=== PATIENT | female | born 1960 | race African-American/Black ===

== ENCOUNTER 2019-04-04 15:55 | Emergency (ER) | payer MEDICARE ==
[~2019-04-04] VITALS: Ht 167.6 cm; Wt 66.0 kg
[2019-04-04] MEDS ORDERED: IBUPROFEN 800MG TABLET PO ONE (17:45)
[2019-04-04] MEDS ORDERED: ACETAMINOPHEN 500MG TABLET PO ONE (17:45)
[2019-04-04] MEDS ORDERED: ACETAMINOPHEN WITH CODEINE 300/30MG TABLET PO ONE (19:45)
[2019-04-04 21:52] VITALS: BP 124/74
== END 2019-04-04 21:53 | disposition home or self-care (01) ==
LOC: ER 15:55
DX: M79.662 Pain in left lower leg (principal); M79.661 Pain in right lower leg; I10 Essential (primary) hypertension; E78.00 Pure hypercholesterolemia, unspecified; Z98.890 Other specified postprocedural states
CPT/HCPCS: 93970; 99284

== ENCOUNTER 2019-12-29 12:26 | Inpatient (IN) | payer MEDICARE ==
[~2019-12-29] VITALS: Ht 162.6 cm; Wt 58.5 kg
[2019-12-29] MEDS ORDERED: SODIUM CHLORIDE 0.9% 1000ML BAG (SEPSIS BOLUS) IV ONE (13:00)
[2019-12-29] MEDS ORDERED: MORPHINE SULFATE 2 MG/ML CPJ (NOT FOR IM USE) IV ONE (13:15)
[2019-12-29 13:20] LABS: BASOPHILS % 0.5 % (0.0-2.0); EOSINOPHILS % 0.3 % (0.0-5.0); HEMATOCRIT. 48.9 % (36.0-48.0); HEMOGLOBIN. 16.1 g/dL (12.0-16.0); LYMPHOCYTES % 7.3 % (20.0-50.0); MEAN CORPUSCULAR HEMOGLOBIN 30.6 pg (28.0-32.0); MEAN CORPUSCULAR VOLUME 93.1 fL (81.0-99.0); MEAN PLATELET VOLUME 7.7 fl (7.4-10.4); MONOCYTES % 5.3 % (2.0-8.0); NEUTROPHILS % 86.6 % (40.0-76.0); PLATELET 279 x1000/uL (130-400); RED BLOOD CELL COUNT 5.25 mill/uL (4.2-5.4); RED CELL DISTRIBUTION WIDTH 14.8 % (11.6-14.6)
[2019-12-29 13:26] LABS: CHLORIDE 110 mEq/L (98-107)
[2019-12-29 14:54] LABS: PARTIAL THROMBOPLASTIN TIME 22.9 sec (23.4-31.0); PROTHROMBIN TIME 10.4 sec (9.6-11.0)
[2019-12-29] MEDS ORDERED: LEVOFLOXACIN 750MG PREMIX 150 ML IV ONE (15:30)
[2019-12-29] MEDS ORDERED: METRONIDAZOLE 500 MG PREMIX 100 ML IV ONE (15:30)
[2019-12-29 15:38] LABS: CLARITY URINE CLEAR (CLEAR); COLOR URINE DARK YELLOW (YELLOW); KETONES URINE TRACE (NEGATIVE); LEUKOCYTE ESTERASE URINE 2+ (NEGATIVE); NITRITE URINE POSITIVE (NEGATIVE); OCCULT BLOOD URINE NEGATIVE (NEGATIVE); PROTEIN URINE 1+ (NEGATIVE)
[2019-12-29 17:28] VITALS: BP 119/64
[2019-12-29 18:00] VITALS: BP 134/77
[2019-12-29] MEDS ORDERED: ACETAMINOPHEN 650MG SUPP PR PRN (18:15)
[2019-12-29] MEDS ORDERED: IPRATROPIUM/ALBUTEROL 0.5-3(2.5)MG/3ML NEB NEB PRN (18:15)
[2019-12-29] MEDS ORDERED: GUAIFENESIN 200MG/10ML SUGAR FREE UDC PO PRN (18:15)
[2019-12-29] MEDS ORDERED: LORAZEPAM 0.5MG TABLET PO PRN (18:15)
[2019-12-29] MEDS ORDERED: ONDANSETRON HCL 4MG/2ML INJ IV PRN (18:15)
[2019-12-29] MEDS ORDERED: CLONIDINE 0.1MG TABLET PO PRN (18:15)
[2019-12-29] MEDS ORDERED: NA PHOS,M-B/NA PHOS,DI-BA ENEMA 118ML PR PRN (18:15)
[2019-12-29] MEDS ORDERED: DIPHENHYDRAMINE 50MG/ML VIAL IV PRN (18:15)
[2019-12-29] MEDS ORDERED: DOCUSATE SODIUM 100MG CAPSULE PO PRN (18:15)
[2019-12-29] MEDS ORDERED: MAGNESIUM/ALUMINUM HYDROXIDE/SIMETHICONE 30ML UDC PO PRN (18:15)
[2019-12-29] MEDS ORDERED: BISACODYL 10MG SUPP PR NR (18:22)
[2019-12-29] MEDS ORDERED: NA PHOS,M-B/NA PHOS,DI-BA ENEMA 118ML PR NR (18:35)
[2019-12-29] MEDS: DEXT 5%/0.45% NACL 1000ML 1,000 ML IV SCH (18:40)
[2019-12-29] MEDS: ENOXAPARIN 40MG/0.4ML SYR SUBCUT SCH (18:54)
[2019-12-29 20:00] VITALS: BP 130/74
[2019-12-29] MEDS: METRONIDAZOLE 500 MG PREMIX 100 ML IV SCH (21:26)
[2019-12-29] MEDS: HYDROCODONE/ACETAMINOPHEN 5/325MG TABLET PO PRN (21:45)
[2019-12-29 22:00] VITALS: BP 157/82
[2019-12-30] VITALS (24 sets, daily range): BP systolic 128–163; BP diastolic 71–121
[2019-12-30] MEDS: HYDROCODONE/ACETAMINOPHEN 5/325MG TABLET PO PRN (02:30)
[2019-12-30] MEDS: DEXT 5%/0.45% NACL 1000ML 1,000 ML IV SCH ×2 (05:10→14:30)
[2019-12-30] MEDS: METRONIDAZOLE 500 MG PREMIX 100 ML IV SCH (05:20)
[2019-12-30 07:22] LABS: CHLORIDE 108 mEq/L (98-107)
[2019-12-30 07:25] LABS: BASOPHILS % 0.1 % (0.0-2.0); HEMATOCRIT. 42.4 % (36.0-48.0); HEMOGLOBIN. 14.1 g/dL (12.0-16.0); LYMPHOCYTES % 7.1 % (20.0-50.0); MEAN CORPUSCULAR HEMOGLOBIN 30.6 pg (28.0-32.0); MEAN CORPUSCULAR VOLUME 91.9 fL (81.0-99.0); MONOCYTES % 6.7 % (2.0-8.0); NEUTROPHILS % 86.1 % (40.0-76.0); PLATELET 211 x1000/uL (130-400); RED BLOOD CELL COUNT 4.61 mill/uL (4.2-5.4); RED CELL DISTRIBUTION WIDTH 14.3 % (11.6-14.6)
[2019-12-30 08:01] LABS: HDL CHOLESTEROL 41 mg/dL (40-59); LDL CHOLESTEROL 33 mg/dL (5-100)
[2019-12-30 08:03] LABS: T4 FREE 1.08 ng/dL (0.76-1.46)
[2019-12-30] MEDS ORDERED: FAMOTIDINE 20MG/2ML VIAL IV SCH (09:00)
[2019-12-30] MEDS: MORPHINE SULFATE 2 MG/ML CPJ (NOT FOR IM USE) IV PRN ×2 (11:08→15:49)
[2019-12-30] MEDS ORDERED: SODIUM CHLORIDE 0.9% 500 ML IV ONE ×2 (11:15→12:30)
[2019-12-30] MEDS ORDERED: POTASSIUM CHLORIDE INJ 40 MEQ in DEXT 5% WATER 250 ML IV NR (12:00)
[2019-12-30] MEDS ORDERED: HYDRALAZINE 20MG/ML VIAL IV PRN (13:45)
[2019-12-30 14:07] LABS: BG BASE EXCESS -2.4 mmol/L (-2.0-2.0); BG CARBOXYHEMOGLOBIN 0.7 % (0.5-1.5); BG DEOXYHEMOGLOBIN 6.2 % (0.0-5.0); BG METHEMOGLOBIN 0.3 % (0.0-1.5); BG OXYGEN SATURATION 93.7 % (92.0-98.5); BG OXYHEMOGLOBIN 92.8 % (94.0-97.0); BG PCO2 32.5 mmHg (35.0-45.0); BG PH 7.428 (7.350-7.450); BG PO2 64.4 mmHg (75.0-100.0); BG SAMPLE SITE LEFT RADIAL; BG TOTAL HEMOGLOBIN 14.5 g/dL (12.0-18.0); BG VENT MODE ROOM AIR
[2019-12-30 14:33] LABS: HEPATITIS B SURFACE ANTIGEN NEGATIVE
[2019-12-30 15:03] LABS: HEPATITIS A AB IGM NEGATIVE (NEGATIVE)
[2019-12-30] MEDS: POLYETHYLENE GLYCOL 3350 (17GM) 1 DOSE PACK PO SCH (15:43)
[2019-12-30] MEDS: PIPERACILLIN/TAZOBACTAM 3.375 G in DEXT 5% WATER 100 ML IV SCH (15:43)
[2019-12-30] MEDS ORDERED: LEVOFLOXACIN 500MG PREMIX 100 ML IV SCH (16:00)
[2019-12-30] MEDS ORDERED: SORBITOL 70% SOLN 30ML PO NR ×2 (16:00→21:00)
[2019-12-30] MEDS ORDERED: ACETAMINOPHEN 325MG TABLET PO PRN (16:45)
[2019-12-30] MEDS ORDERED: DOCUSATE SODIUM 100MG CAPSULE PO SCH (17:00)
[2019-12-30] MEDS: ENOXAPARIN 40MG/0.4ML SYR SUBCUT SCH (18:10)
[2019-12-30] MEDS: SENNOSIDES/DOCUSATE SOD 8.6/50MG TABLET PO SCH (20:23)
[2019-12-30] MEDS: METOCLOPRAMIDE HCL 10MG TABLET PO SCH (20:24)
[2019-12-30] MEDS: AMITRIPTYLINE 10MG TABLET PO SCH (20:24)
[2019-12-31] VITALS (12 sets, daily range): BP systolic 113–149; BP diastolic 72–96
[2019-12-31] MEDS: PIPERACILLIN/TAZOBACTAM 3.375 G in DEXT 5% WATER 100 ML IV SCH ×3 (00:26→11:33)
[2019-12-31] MEDS: DEXT 5%/0.45% NACL 1000ML 1,000 ML IV SCH ×3 (01:48→18:54)
[2019-12-31] MEDS ORDERED: METOPROLOL TARTRATE 25MG TABLET PO NR ×2 (03:15→12:45)
[2019-12-31 05:32] LABS: HEMATOCRIT. 40.9 % (36.0-48.0); HEMOGLOBIN. 13.7 g/dL (12.0-16.0); MEAN CORPUSCULAR HEMOGLOBIN 30.5 pg (28.0-32.0); MEAN CORPUSCULAR VOLUME 91.1 fL (81.0-99.0); PLATELET 192 x1000/uL (130-400); RED BLOOD CELL COUNT 4.48 mill/uL (4.2-5.4); RED CELL DISTRIBUTION WIDTH 14.4 % (11.6-14.6)
[2019-12-31 05:42] LABS: CHLORIDE 111 mEq/L (98-107)
[2019-12-31 05:52] LABS: CREATINE KINASE 62 IU/L (26-192)
[2019-12-31] MEDS: OMEPRAZOLE 20MG CAPSULE EXTENDED RELEASE PO SCH (06:35)
[2019-12-31] MEDS: METOCLOPRAMIDE HCL 10MG TABLET PO SCH ×4 (06:35→20:24)
[2019-12-31] MEDS: MORPHINE SULFATE 2 MG/ML CPJ (NOT FOR IM USE) IV PRN ×4 (06:49→20:45)
[2019-12-31] MEDS: DOCUSATE SODIUM 100MG CAPSULE PO SCH ×2 (08:20→16:21)
[2019-12-31] MEDS: POLYETHYLENE GLYCOL 3350 (17GM) 1 DOSE PACK PO SCH (08:21)
[2019-12-31] MEDS: BISACODYL 10MG SUPP PR SCH ×2 (08:21→08:43)
[2019-12-31] MEDS ORDERED: AMLODIPINE 2.5MG TABLET PO NR (12:15)
[2019-12-31] MEDS ORDERED: SODIUM CHLORIDE 0.9% 500 ML IV ONE (12:15)
[2019-12-31] MEDS ORDERED: POTASSIUM CHLORIDE 20MEQ TABLET SR PO NR (12:15)
[2019-12-31 12:16] LABS: PLATELET ESTIMATE NORMAL
[2019-12-31] MEDS ORDERED: SIMETHICONE 80MG TABLET CHEW PO SCH (12:45)
[2019-12-31] MEDS: ACETAMINOPHEN 325MG TABLET PO PRN (12:55)
[2019-12-31] MEDS: ENOXAPARIN 40MG/0.4ML SYR SUBCUT SCH (18:53)
[2019-12-31] MEDS: SENNOSIDES/DOCUSATE SOD 8.6/50MG TABLET PO SCH (20:24)
[2019-12-31] MEDS: AMITRIPTYLINE 10MG TABLET PO SCH (20:24)
[2019-12-31] MEDS: METOPROLOL TARTRATE 50MG TABLET PO SCH (20:26)
[2019-12-31] MEDS: MEROPENEM 1,000 MG in SODIUM CHLORIDE 0.9% 100 ML IV SCH (20:27)
[2019-12-31] MEDS ORDERED: AMLODIPINE 2.5MG TABLET PO SCH (21:00)
[2019-12-31] MEDS ORDERED: METOPROLOL TARTRATE 25MG TABLET PO SCH (21:00)
[2020-01-01] VITALS (12 sets, daily range): BP systolic 116–149; BP diastolic 37–78
[2020-01-01] MEDS: DEXT 5%/0.45% NACL 1000ML 1,000 ML IV SCH ×2 (03:20→10:06)
[2020-01-01] MEDS: MEROPENEM 1,000 MG in SODIUM CHLORIDE 0.9% 100 ML IV SCH ×3 (04:10→20:44)
[2020-01-01] MEDS: MORPHINE SULFATE 2 MG/ML CPJ (NOT FOR IM USE) IV PRN ×4 (04:40→20:38)
[2020-01-01] MEDS: METOCLOPRAMIDE HCL 10MG TABLET PO SCH ×4 (06:00→20:36)
[2020-01-01] MEDS: OMEPRAZOLE 20MG CAPSULE EXTENDED RELEASE PO SCH (06:00)
[2020-01-01 07:14] LABS: CHLORIDE 111 mEq/L (98-107)
[2020-01-01 07:15] LABS: BASOPHILS % 0.4 % (0.0-2.0); EOSINOPHILS % 1.2 % (0.0-5.0); HEMATOCRIT. 36.9 % (36.0-48.0); HEMOGLOBIN. 12.5 g/dL (12.0-16.0); LYMPHOCYTES % 13.8 % (20.0-50.0); MEAN CORPUSCULAR HEMOGLOBIN 30.8 pg (28.0-32.0); MEAN CORPUSCULAR VOLUME 91.3 fL (81.0-99.0); MEAN PLATELET VOLUME 8.5 fl (7.4-10.4); MONOCYTES % 7.8 % (2.0-8.0); NEUTROPHILS % 76.8 % (40.0-76.0); PLATELET 176 x1000/uL (130-400); RED BLOOD CELL COUNT 4.05 mill/uL (4.2-5.4); RED CELL DISTRIBUTION WIDTH 14.2 % (11.6-14.6)
[2020-01-01] MEDS: BISACODYL 10MG SUPP PR SCH ×2 (09:00→10:00)
[2020-01-01] MEDS: DOCUSATE SODIUM 100MG CAPSULE PO SCH (09:00)
[2020-01-01] MEDS: POLYETHYLENE GLYCOL 3350 (17GM) 1 DOSE PACK PO SCH (10:00)
[2020-01-01] MEDS: DOCUSATE SODIUM 250MG CAPSULE PO SCH ×2 (10:04→16:04)
[2020-01-01] MEDS: METOPROLOL TARTRATE 50MG TABLET PO SCH (10:04)
[2020-01-01] MEDS ORDERED: DILTIAZEM HCL 30MG TABLET PO SCH (10:15)
[2020-01-01] MEDS ORDERED: POTASSIUM CHLORIDE INJ 40 MEQ in DEXT 5% WATER 250 ML IV SCH (11:00)
[2020-01-01 11:23] LABS: BG BASE EXCESS -0.4 mmol/L (-2.0-2.0); BG CARBOXYHEMOGLOBIN 0.8 % (0.5-1.5); BG HCO3 ACT 24.3 mmol/L (22.0-26.0); BG METHEMOGLOBIN 0.1 % (0.0-1.5); BG OXYHEMOGLOBIN 94.1 % (94.0-97.0); BG PCO2 39.9 mmHg (35.0-45.0); BG PH 7.402 (7.350-7.450); BG PO2 69.9 mmHg (75.0-100.0); BG SAMPLE SITE RIGHT RADIAL; BG TOTAL HEMOGLOBIN 13.3 g/dL (12.0-18.0); BG VENT MODE ROOM AIR
[2020-01-01] MEDS: ACETAMINOPHEN 325MG TABLET PO PRN (13:19)
[2020-01-01] MEDS: DILTIAZEM HCL 30MG TABLET PO SCH ×2 (16:03→22:31)
[2020-01-01] MEDS: ENOXAPARIN 40MG/0.4ML SYR SUBCUT SCH (16:04)
[2020-01-01] MEDS: BUDESONIDE 0.5MG/2ML NEB HHN SCH ×2 (16:15→20:16)
[2020-01-01] MEDS: IPRATROPIUM/ALBUTEROL 0.5-3(2.5)MG/3ML NEB HHN SCH ×2 (16:15→20:15)
[2020-01-01] MEDS: SENNOSIDES/DOCUSATE SOD 8.6/50MG TABLET PO SCH (20:36)
[2020-01-01] MEDS: AMITRIPTYLINE 10MG TABLET PO SCH (20:36)
[2020-01-02] VITALS (12 sets, daily range): BP systolic 117–150; BP diastolic 54–86
[2020-01-02] MEDS: IPRATROPIUM/ALBUTEROL 0.5-3(2.5)MG/3ML NEB HHN SCH ×4 (01:36→20:26)
[2020-01-02] MEDS: MEROPENEM 1,000 MG in SODIUM CHLORIDE 0.9% 100 ML IV SCH ×2 (04:41→11:49)
[2020-01-02] MEDS: DEXT 5%/0.45% NACL 1000ML 1,000 ML IV SCH ×2 (06:16→14:37)
[2020-01-02] MEDS: METOCLOPRAMIDE HCL 10MG TABLET PO SCH ×4 (06:17→20:31)
[2020-01-02] MEDS: OMEPRAZOLE 20MG CAPSULE EXTENDED RELEASE PO SCH (06:17)
[2020-01-02] MEDS: MORPHINE SULFATE 2 MG/ML CPJ (NOT FOR IM USE) IV PRN ×3 (06:49→20:33)
[2020-01-02] MEDS: DILTIAZEM HCL 30MG TABLET PO SCH ×3 (06:50→22:33)
[2020-01-02 06:58] LABS: BASOPHILS % 0.5 % (0.0-2.0); EOSINOPHILS % 2.3 % (0.0-5.0); HEMATOCRIT. 37.2 % (36.0-48.0); HEMOGLOBIN. 12.5 g/dL (12.0-16.0); LYMPHOCYTES % 19.2 % (20.0-50.0); MEAN CORPUSCULAR VOLUME 92.2 fL (81.0-99.0); MEAN PLATELET VOLUME 8.4 fl (7.4-10.4); MONOCYTES % 7.9 % (2.0-8.0); NEUTROPHILS % 70.1 % (40.0-76.0); PLATELET 176 x1000/uL (130-400); RED BLOOD CELL COUNT 4.04 mill/uL (4.2-5.4); RED CELL DISTRIBUTION WIDTH 14.5 % (11.6-14.6)
[2020-01-02 07:05] LABS: CHLORIDE 110 mEq/L (98-107)
[2020-01-02] MEDS: BUDESONIDE 0.5MG/2ML NEB HHN SCH ×2 (07:31→20:27)
[2020-01-02] MEDS: BISACODYL 10MG SUPP PR SCH (09:00)
[2020-01-02] MEDS: DOCUSATE SODIUM 250MG CAPSULE PO SCH ×2 (10:00→18:42)
[2020-01-02] MEDS: POLYETHYLENE GLYCOL 3350 (17GM) 1 DOSE PACK PO SCH (10:00)
[2020-01-02] MEDS: ENOXAPARIN 40MG/0.4ML SYR SUBCUT SCH (18:42)
[2020-01-02] MEDS: SENNOSIDES/DOCUSATE SOD 8.6/50MG TABLET PO SCH (20:31)
[2020-01-02] MEDS ORDERED: AMITRIPTYLINE 25MG TABLET PO SCH (21:00)
[2020-01-03] VITALS (10 sets, daily range): BP systolic 116–148; BP diastolic 56–84
[2020-01-03] MEDS: IPRATROPIUM/ALBUTEROL 0.5-3(2.5)MG/3ML NEB HHN SCH ×3 (01:11→10:57)
[2020-01-03] MEDS: DEXT 5%/0.45% NACL 1000ML 1,000 ML IV SCH ×2 (06:14→16:09)
[2020-01-03] MEDS: OMEPRAZOLE 20MG CAPSULE EXTENDED RELEASE PO SCH (06:16)
[2020-01-03] MEDS: METOCLOPRAMIDE HCL 10MG TABLET PO SCH ×3 (06:16→17:00)
[2020-01-03] MEDS: DILTIAZEM HCL 30MG TABLET PO SCH ×2 (06:17→15:27)
[2020-01-03] MEDS: MORPHINE SULFATE 2 MG/ML CPJ (NOT FOR IM USE) IV PRN ×2 (06:22→11:20)
[2020-01-03 06:55] LABS: BASOPHILS % 0.7 % (0.0-2.0); EOSINOPHILS % 5.7 % (0.0-5.0); HEMATOCRIT. 36.2 % (36.0-48.0); HEMOGLOBIN. 12.1 g/dL (12.0-16.0); LYMPHOCYTES % 28.1 % (20.0-50.0); MEAN CORPUSCULAR HEMOGLOBIN 30.8 pg (28.0-32.0); MEAN CORPUSCULAR VOLUME 92.3 fL (81.0-99.0); MONOCYTES % 13.9 % (2.0-8.0); NEUTROPHILS % 51.6 % (40.0-76.0); PLATELET 213 x1000/uL (130-400); RED BLOOD CELL COUNT 3.92 mill/uL (4.2-5.4); RED CELL DISTRIBUTION WIDTH 14.2 % (11.6-14.6)
[2020-01-03 07:49] LABS: CHLORIDE 108 mEq/L (98-107)
[2020-01-03] MEDS: POLYETHYLENE GLYCOL 3350 (17GM) 1 DOSE PACK PO SCH (08:25)
[2020-01-03] MEDS: DOCUSATE SODIUM 250MG CAPSULE PO SCH ×2 (08:25→17:00)
[2020-01-03] MEDS: BISACODYL 10MG SUPP PR SCH (08:25)
[2020-01-03] MEDS: BUDESONIDE 0.5MG/2ML NEB HHN SCH (08:46)
[2020-01-03] MEDS ORDERED: POTASSIUM CHLORIDE 20MEQ/PACKET PO NR (10:30)
[2020-01-03] MEDS ORDERED: SIMETHICONE 80MG TABLET CHEW PO NR (13:00)
[2020-01-03] MEDS: HYDROCODONE/ACETAMINOPHEN 5/325MG TABLET PO PRN (17:01)
[2020-01-04 09:09] LABS: SACCHAROMYCES CEREVISIAE IGG <20.0 Units (0.0-24.9); SACCHAROMYCES CEREVISIAE IGM <20.0 Units (0.0-24.9)
[2020-01-04 13:07] LABS: ATYPICAL pANCA <1:20 titer (Neg:<1:20)
== END 2020-01-03 18:30 | disposition home or self-care (01) | DRG 872 ==
LOC: ER 12:26 → 3WST 15:25 → SUPCPDRO 15:57 → ENRESERV 16:06
PROVIDERS: ADMIT Internal Medicine; ATTEND Internal Medicine
DX: A41.9 Sepsis, unspecified organism (principal); N39.0 Urinary tract infection, site not specified; E46 Unspecified protein-calorie malnutrition; F31.30 Bipolar disorder, current episode depressed, mild or moderate severity, unspecified; R17 Unspecified jaundice; J98.11 Atelectasis; M48.56XA Collapsed vertebra, not elsewhere classified, lumbar region, initial encounter for fracture; K56.41 Fecal impaction; K52.9 Noninfective gastroenteritis and colitis, unspecified; K44.9 Diaphragmatic hernia without obstruction or gangrene; I25.10 Atherosclerotic heart disease of native coronary artery without angina pectoris; I10 Essential (primary) hypertension; E78.5 Hyperlipidemia, unspecified; E87.6 Hypokalemia; E86.0 Dehydration; J44.9 Chronic obstructive pulmonary disease, unspecified; M47.816 Spondylosis without myelopathy or radiculopathy, lumbar region; E78.00 Pure hypercholesterolemia, unspecified; R73.9 Hyperglycemia, unspecified; F17.210 Nicotine dependence, cigarettes, uncomplicated; R74.0 Nonspecific elevation of levels of transaminase and lactic acid dehydrogenase [LDH]; Z90.49 Acquired absence of other specified parts of digestive tract; Z79.82 Long term (current) use of aspirin; Z90.710 Acquired absence of both cervix and uterus; Z79.899 Other long term (current) drug therapy; Z68.22 Body mass index [BMI] 22.0-22.9, adult
CPT/HCPCS: 36415; 36600; 71045; 72148; 74176; 76700; 80048; 80053; 80061; 80076; 81003; 82270; 82375; 82550; 82553; 82805; 83036; 83605; 84145; 84439; 84443; 84484; 85025; 85651; 86256; 86671; 86705; 86709; 86803; 86850; 86900; 87340; 93005; 93306; 93970; 94640; 97116; 97162; 97530; 99291; J1650; J1956; J2185; J2270; J2543; J3480; J3490; J7030; J7050; J7060; J7626; J8597

== ENCOUNTER 2020-01-18 21:51 | Inpatient (IN) | payer MEDICARE ==
[~2020-01-18] VITALS: Ht 162.6 cm; Wt 53.5 kg
[2020-01-18] MEDS ORDERED: KETOROLAC 30MG/ML VIAL IV STA (22:49)
[2020-01-18] MEDS ORDERED: SODIUM CHLORIDE 0.9% 1,000 ML IV ONE (22:49)
[2020-01-18] MEDS ORDERED: ONDANSETRON HCL 4MG/2ML INJ IV STA (22:49)
[2020-01-18 22:57] LABS: CLARITY URINE CLEAR (CLEAR); COLOR URINE YELLOW (YELLOW); KETONES URINE NEGATIVE (NEGATIVE); LEUKOCYTE ESTERASE URINE NEGATIVE (NEGATIVE); NITRITE URINE NEGATIVE (NEGATIVE); OCCULT BLOOD URINE TRACE (NEGATIVE); PH URINE 6.5 (4.5-8.0); PROTEIN URINE NEGATIVE (NEGATIVE); SPECIFIC GRAVITY URINE 1.007 (1.005-1.030); UROBILINOGEN URINE 0.2 E.U./dL (0.2-1.0)
[2020-01-18 23:09] LABS: BASOPHILS % 1.3 % (0.0-2.0); HEMATOCRIT. 38.9 % (36.0-48.0); HEMOGLOBIN. 13.3 g/dL (12.0-16.0); LYMPHOCYTES % 34.1 % (20.0-50.0); MEAN CORPUSCULAR HEMOGLOBIN 30.4 pg (28.0-32.0); MEAN CORPUSCULAR VOLUME 88.9 fL (81.0-99.0); MEAN PLATELET VOLUME 6.9 fl (7.4-10.4); MONOCYTES % 8.9 % (2.0-8.0); NEUTROPHILS % 54.7 % (40.0-76.0); PLATELET 332 x1000/uL (130-400); RED BLOOD CELL COUNT 4.38 mill/uL (4.2-5.4)
[2020-01-18 23:16] LABS: CHLORIDE 104 mEq/L (98-107)
[2020-01-19] MEDS ORDERED: MORPHINE SULFATE 2 MG/ML CPJ (NOT FOR IM USE) IV ONE (01:45)
[2020-01-19 08:30] VITALS: BP 137/74
[2020-01-19] MEDS ORDERED: LISI40TA4 PO (09:18)
[2020-01-19] MEDS ORDERED: ASPI-1497 PO (09:18)
[2020-01-19] MEDS ORDERED: CARI250T PO (09:18)
[2020-01-19] MEDS ORDERED: PRED2.5T4 PO (09:18)
[2020-01-19] MEDS ORDERED: ATOR20TA65 PO (09:18)
[2020-01-19] MEDS ORDERED: HALO10TA13 PO (09:18)
[2020-01-19] MEDS ORDERED: AMLO10TA80 PO (09:18)
[2020-01-19] MEDS ORDERED: ONDANSETRON HCL 4MG/2ML INJ IV PRN (10:00)
[2020-01-19] MEDS ORDERED: ACETAMINOPHEN 325MG TABLET PO PRN (10:00)
[2020-01-19] MEDS ORDERED: HYDRALAZINE 20MG/ML VIAL IV PRN (10:00)
[2020-01-19] MEDS: MORPHINE SULFATE 2 MG/ML CPJ (NOT FOR IM USE) IV PRN ×3 (10:26→20:53)
[2020-01-19] MEDS ORDERED: AMIT150T PO (10:34)
[2020-01-19 12:00] VITALS: BP 143/72
[2020-01-19] MEDS ORDERED: PNEUMOCOCCAL 23-VAL P-SAC VAC 0.5 ML IM ONE (12:00)
[2020-01-19] MEDS: DEXT 5%/0.9% NACL 1,000 ML IV SCH (12:51)
[2020-01-19] MEDS: LEVOFLOXACIN 500MG PREMIX 100 ML IV SCH (14:31)
[2020-01-19] MEDS: METRONIDAZOLE 500 MG PREMIX 100 ML IV SCH ×2 (14:31→23:19)
[2020-01-19] MEDS ORDERED: NA PHOS,M-B/NA PHOS,DI-BA ENEMA 118ML PR PRN (15:30)
[2020-01-19] MEDS ORDERED: BISACODYL 10MG SUPP PR PRN (15:30)
[2020-01-19] MEDS: ENOXAPARIN 40MG/0.4ML SYR SUBCUT SCH (15:48)
[2020-01-19] MEDS: FAMOTIDINE 20MG/2ML VIAL IV SCH (15:50)
[2020-01-19 16:00] VITALS: BP 129/61
[2020-01-19] MEDS ORDERED: BISACODYL 10MG SUPP PR NR (16:00)
[2020-01-19] MEDS: DOCUSATE SODIUM 100MG CAPSULE PO SCH (16:27)
[2020-01-19] MEDS: BISACODYL 5MG TABLET PO SCH (19:12)
[2020-01-19 20:00] VITALS: BP 111/52
[2020-01-19 21:25] LABS: HEMATOCRIT. 39.2 % (36.0-48.0); MEAN CORPUSCULAR HEMOGLOBIN 30.5 pg (28.0-32.0); MEAN CORPUSCULAR VOLUME 91.9 fL (81.0-99.0); MEAN PLATELET VOLUME 7.4 fl (7.4-10.4); PLATELET 301 x1000/uL (130-400); RED BLOOD CELL COUNT 4.26 mill/uL (4.2-5.4); RED CELL DISTRIBUTION WIDTH 14.4 % (11.6-14.6)
[2020-01-19 21:32] LABS: CHLORIDE 108 mEq/L (98-107)
[2020-01-19 21:48] LABS: PLATELET ESTIMATE NORMAL
[2020-01-20] VITALS: BP 123/70
[2020-01-20] MEDS: DEXT 5%/0.9% NACL 1,000 ML IV SCH ×2 (00:50→09:35)
[2020-01-20 04:00] VITALS: BP 115/68
[2020-01-20 04:18] LABS: HEMATOCRIT 39.9 % (36.0-48.0); HEMOGLOBIN 13.4 g/dL (12.0-16.0); MEAN CORPUSCULAR HEMOGLOBIN 30.7 pg (28.0-32.0); MEAN CORPUSCULAR VOLUME 91.4 fL (81.0-99.0); PLATELET 253 x1000/uL (130-400); RED BLOOD CELL COUNT 4.37 mill/uL (4.2-5.4); RED CELL DISTRIBUTION WIDTH 14.5 % (11.6-14.6)
[2020-01-20 04:29] LABS: INR 1.1; PROTHROMBIN TIME 11.4 sec (9.6-11.0)
[2020-01-20 04:43] LABS: CHLORIDE 109 mEq/L (98-107)
[2020-01-20] MEDS: METRONIDAZOLE 500 MG PREMIX 100 ML IV SCH ×3 (06:14→21:10)
[2020-01-20 08:00] VITALS: BP 131/71
[2020-01-20] MEDS: BISACODYL 5MG TABLET PO SCH (09:28)
[2020-01-20] MEDS: DOCUSATE SODIUM 100MG CAPSULE PO SCH ×4 (09:28→18:04)
[2020-01-20] MEDS: ENOXAPARIN 40MG/0.4ML SYR SUBCUT SCH (09:28)
[2020-01-20] MEDS: FAMOTIDINE 20MG/2ML VIAL IV SCH (09:28)
[2020-01-20] MEDS: MORPHINE SULFATE 2 MG/ML CPJ (NOT FOR IM USE) IV PRN ×4 (09:38→21:44)
[2020-01-20] MEDS ORDERED: POTASSIUM CHLORIDE INJ 40 MEQ in DEXT 5% WATER 500 ML IV NR (10:00)
[2020-01-20 12:00] VITALS: BP 123/75
[2020-01-20] MEDS: LEVOFLOXACIN 500MG PREMIX 100 ML IV SCH (15:07)
[2020-01-20 16:00] VITALS: BP 124/64
[2020-01-20] MEDS: HYDROCODONE/ACETAMINOPHEN 5/325MG TABLET PO PRN (16:04)
[2020-01-20 20:00] VITALS: BP 134/68
[2020-01-20] MEDS ORDERED: MAGNESIUM CITRATE 300ML SOLUTION PO NR (22:00)
[2020-01-21] VITALS: BP 108/70
[2020-01-21 04:00] VITALS: BP 109/62
[2020-01-21] MEDS: DEXT 5%/0.9% NACL 1,000 ML IV SCH ×2 (05:26→16:50)
[2020-01-21] MEDS: METRONIDAZOLE 500 MG PREMIX 100 ML IV SCH ×3 (05:41→23:01)
[2020-01-21 06:01] LABS: CHLORIDE 107 mEq/L (98-107)
[2020-01-21 06:04] LABS: HEMATOCRIT 38.1 % (36.0-48.0); HEMOGLOBIN 12.8 g/dL (12.0-16.0); MEAN CORPUSCULAR HEMOGLOBIN 30.2 pg (28.0-32.0); MEAN CORPUSCULAR VOLUME 90.1 fL (81.0-99.0); PLATELET 296 x1000/uL (130-400); RED BLOOD CELL COUNT 4.23 mill/uL (4.2-5.4)
[2020-01-21 08:00] VITALS: BP 114/69
[2020-01-21] MEDS ORDERED: SORBITOL 70% SOLN 30ML PO SCH (09:00)
[2020-01-21] MEDS ORDERED: POLYETHYLENE GLYCOL 3350 (17GM) 1 DOSE PACK PO SCH (09:00)
[2020-01-21] MEDS: DOCUSATE SODIUM 100MG CAPSULE PO SCH ×2 (09:00→10:48)
[2020-01-21] MEDS: ENOXAPARIN 40MG/0.4ML SYR SUBCUT SCH (10:47)
[2020-01-21] MEDS: FAMOTIDINE 20MG/2ML VIAL IV SCH (10:48)
[2020-01-21] MEDS: MORPHINE SULFATE 2 MG/ML CPJ (NOT FOR IM USE) IV PRN ×2 (11:51→20:24)
[2020-01-21 12:00] VITALS: BP 114/52
[2020-01-21] MEDS: LEVOFLOXACIN 500MG PREMIX 100 ML IV SCH (14:35)
[2020-01-21] MEDS ORDERED: IOHEXOL-300 100 ML BOTTLE ONE ×2 (14:56→21:37)
[2020-01-21] MEDS ORDERED: DIATR MEGLU/DIATRIZOATE SOLN 30ML ONE (14:57)
[2020-01-21] MEDS ORDERED: DIATR MEGLU/DIATRIZOATE SOLN 120ML ONE (14:58)
[2020-01-21 16:00] VITALS: BP 122/74
[2020-01-21] MEDS ORDERED: POTASSIUM CHLORIDE 20MEQ TABLET SR PO NR (16:00)
[2020-01-21 18:30] LABS: C REACTIVE PROTEIN QUANT 2.3 mg/L (0.0-3.0)
[2020-01-21 20:00] VITALS: BP 108/69
[2020-01-22] VITALS: BP 116/73
[2020-01-22 04:00] VITALS: BP 119/71
[2020-01-22] MEDS: METRONIDAZOLE 500 MG PREMIX 100 ML IV SCH ×2 (05:19→13:39)
[2020-01-22] MEDS: DEXT 5%/0.9% NACL 1,000 ML IV SCH (05:51)
[2020-01-22 08:00] VITALS: BP 122/61
[2020-01-22 08:46] LABS: HEMOGLOBIN. 12.8 g/dL (12.0-16.0); MEAN CORPUSCULAR HEMOGLOBIN 30.2 pg (28.0-32.0); MEAN CORPUSCULAR VOLUME 90.1 fL (81.0-99.0); PLATELET 262 x1000/uL (130-400); RED BLOOD CELL COUNT 4.22 mill/uL (4.2-5.4)
[2020-01-22] MEDS: ENOXAPARIN 40MG/0.4ML SYR SUBCUT SCH (09:26)
[2020-01-22] MEDS: FAMOTIDINE 20MG/2ML VIAL IV SCH (09:26)
[2020-01-22 09:37] LABS: CHLORIDE 110 mEq/L (98-107)
[2020-01-22 12:00] VITALS: BP 105/57
[2020-01-22 13:40] LABS: PLATELET ESTIMATE NORMAL
[2020-01-22] MEDS: HYDROCODONE/ACETAMINOPHEN 5/325MG TABLET PO PRN (14:25)
[2020-01-22] MEDS: LEVOFLOXACIN 500MG PREMIX 100 ML IV SCH (15:02)
[2020-01-22 15:12] VITALS: BP 105/57
[2020-01-22 16:00] VITALS: BP 116/70
== END 2020-01-22 16:35 | disposition home or self-care (01) | DRG 389 ==
LOC: ER 21:51 → EDBEDREQ 01-19 01:54 → 7WST 01-19 02:16 → EDBEDREQTM 01-19 02:20 → EDBEDREQ 01-19 02:20 → ENRESERV 01-19 07:27 → 8WST 01-20 20:52
PROVIDERS: ADMIT Internal Medicine; ATTEND Internal Medicine
DX: K56.41 Fecal impaction (principal); M48.56XA Collapsed vertebra, not elsewhere classified, lumbar region, initial encounter for fracture; E87.1 Hypo-osmolality and hyponatremia; K52.9 Noninfective gastroenteritis and colitis, unspecified; E78.5 Hyperlipidemia, unspecified; I10 Essential (primary) hypertension; I25.10 Atherosclerotic heart disease of native coronary artery without angina pectoris; K44.9 Diaphragmatic hernia without obstruction or gangrene; M47.816 Spondylosis without myelopathy or radiculopathy, lumbar region; E78.00 Pure hypercholesterolemia, unspecified; D72.825 Bandemia; F17.210 Nicotine dependence, cigarettes, uncomplicated; Z20.828 Contact with and (suspected) exposure to other viral communicable diseases; J44.9 Chronic obstructive pulmonary disease, unspecified; Z90.49 Acquired absence of other specified parts of digestive tract; Z90.710 Acquired absence of both cervix and uterus; Z79.82 Long term (current) use of aspirin; Z79.899 Other long term (current) drug therapy
CPT/HCPCS: 36415; 71045; 74018; 74176; 74177; 80048; 80053; 81003; 82270; 83615; 83880; 84484; 85007; 85025; 85027; 85651; 86140; 86850; 86900; 87015; 87045; 87427; 87449; 87635; 89055; 90732; 93005; 99285; J1650; J1885; J1956; J2270; J2405; J3480; J3490; J7030; J7042; J7060; Q9963; Q9967

== ENCOUNTER 2020-06-22 21:55 | Inpatient (IN) | payer MEDICARE, OTHER ==
[~2020-06-22] VITALS: Ht 162.6 cm; Wt 54.5 kg
[~2020-06-22 21:55] MED LIST: AMIT150T PO; AMLO10TA80 PO; ASPI-1497 PO; ATOR20TA65 PO; CARI250T PO; HALO10TA13 PO; LISI40TA4 PO; PRED2.5T4 PO
[2020-06-22] MEDS ORDERED: ONDANSETRON HCL 4MG/2ML INJ IV STA (22:14)
[2020-06-22] MEDS ORDERED: MORPHINE SULFATE 4 MG/ML CPJ (NOT FOR IM USE) IV STA (22:14)
[2020-06-22] MEDS ORDERED: SODIUM CHLORIDE 0.9% 1,000 ML IV ONE (22:15)
[2020-06-22 23:20] LABS: BASOPHILS % 0.6 % (0.0-2.0); EOSINOPHILS % 1.3 % (0.0-5.0); HEMATOCRIT. 47.7 % (36.0-48.0); HEMOGLOBIN. 15.3 g/dL (12.0-16.0); LYMPHOCYTES % 28.3 % (20.0-50.0); MEAN CORPUSCULAR HEMOGLOBIN 27.6 pg (28.0-32.0); MEAN CORPUSCULAR VOLUME 85.8 fL (81.0-99.0); MEAN PLATELET VOLUME 8.3 fl (7.4-10.4); MONOCYTES % 4.5 % (2.0-8.0); NEUTROPHILS % 65.3 % (40.0-76.0); PLATELET 211 x1000/uL (130-400); RED BLOOD CELL COUNT 5.56 mill/uL (4.2-5.4); RED CELL DISTRIBUTION WIDTH 15.7 % (11.6-14.6)
[2020-06-22 23:26] LABS: CHLORIDE 103 mEq/L (98-107)
[2020-06-22 23:32] LABS: ETHANOL BLOOD < 10 mg/dL
[2020-06-23] MEDS ORDERED: MORPHINE SULFATE 4 MG/ML CPJ (NOT FOR IM USE) IV ONE (00:30)
[2020-06-23] MEDS ORDERED: PIPERACILLIN/TAZOBACTAM 3.375GM/50ML PREMIX IV SCH (00:45)
[2020-06-23 00:48] LABS: PROTHROMBIN TIME 10.8 sec (9.6-11.0)
[2020-06-23 01:04] LABS: CLARITY URINE CLEAR (CLEAR); COLOR URINE YELLOW (YELLOW); KETONES URINE NEGATIVE (NEGATIVE); LEUKOCYTE ESTERASE URINE 3+ (NEGATIVE); NITRITE URINE NEGATIVE (NEGATIVE); OCCULT BLOOD URINE TRACE (NEGATIVE); PH URINE 8.5 (4.5-8.0); PROTEIN URINE NEGATIVE (NEGATIVE); UROBILINOGEN URINE 0.2 E.U./dL (0.2-1.0)
[2020-06-23 01:19] LABS: *BARBITURATES SCREEN URINE NEGATIVE (NEGATIVE); CANNABINOID URINE SCREEN NEGATIVE (NEGATIVE); OPIATES URINE SCREEN PRESUMTIVE POSITIVE (NEGATIVE); PHENCYCLIDINE URINE SCREEN NEGATIVE (NEGATIVE)
[2020-06-23 01:20] LABS: *AMPHETAMINES SCREEN URINE NEGATIVE (NEGATIVE); *BENZODIAZEPINES SCREEN URINE NEGATIVE (NEGATIVE); *COCAINE SCREEN URINE NEGATIVE (NEGATIVE); METHADONE URINE SCREEN NEGATIVE (NEGATIVE)
[2020-06-23] MEDS ORDERED: DIATR MEGLU/DIATRIZOATE SOLN 120ML ONE ×2 (01:33→07:45)
[2020-06-23] MEDS ORDERED: IOHEXOL-300 100 ML BOTTLE ONE (01:34)
[2020-06-23] MEDS: HYDROMORPHONE HCL/PF 2MG/ML CPJ IV PRN ×4 (03:19→15:34)
[2020-06-23] MEDS ORDERED: FENTANYL CITRATE/PF 50MCG/ML 2ML VIAL ONE (11:22)
[2020-06-23] MEDS ORDERED: MIDAZOLAM HCL 2 MG/2 ML VIAL ONE (11:23)
[2020-06-23] MEDS ORDERED: NEOSTIGMINE METHYLSULFATE 1MG/ML 10 ML VIAL ONE (11:23)
[2020-06-23] MEDS ORDERED: PROPOFOL 200MG/20ML VIAL IV ONE (11:23)
[2020-06-23] MEDS ORDERED: EPHEDRINE SULFATE 50MG/ML VIAL ONE (11:24)
[2020-06-23] MEDS ORDERED: VECURONIUM BROMIDE 10 MG/VIAL IV ONE (11:24)
[2020-06-23] MEDS ORDERED: SUCCINYLCHOLINE CHLORIDE 200MG/10ML IV ONE (11:24)
[2020-06-23] MEDS ORDERED: METRONIDAZOLE 500 MG PREMIX 100 ML IV SCH (11:30)
[2020-06-23] MEDS ORDERED: CEFAZOLIN 1000MG PREMIX 50 ML IV SCH (11:30)
[2020-06-23] MEDS ORDERED: BUPIVACAINE HCL 0.5% (5MG/ML) 50ML ONE (12:07)
[2020-06-23] MEDS ORDERED: ONDANSETRON HCL 4MG/2ML INJ ONE (12:10)
[2020-06-23] MEDS ORDERED: DEXAMETHASONE 4MG/ML 1ML VIAL ONE (12:11)
[2020-06-23] MEDS ORDERED: GLYCOPYRROLATE 0.2 MG/ML 2ML VIAL ONE (12:23)
[2020-06-23] MEDS: ONDANSETRON HCL 4MG/2ML INJ IV PRN (15:02)
[2020-06-23] MEDS ORDERED: IPRATROPIUM/ALBUTEROL 0.5-3(2.5)MG/3ML NEB NEB PRN (16:15)
[2020-06-23] MEDS ORDERED: LORAZEPAM 2MG/ML CPJ IV PRN (16:15)
[2020-06-23 16:38] LABS: BG CARBOXYHEMOGLOBIN 0.3 % (0.5-1.5); BG DEOXYHEMOGLOBIN 3.1 % (0.0-5.0); BG HCO3 ACT 24.1 mmol/L (22.0-26.0); BG METHEMOGLOBIN 0.1 % (0.0-1.5); BG OXYGEN SATURATION 96.9 % (92.0-98.5); BG OXYHEMOGLOBIN 96.5 % (94.0-97.0); BG PCO2 46.8 mmHg (35.0-45.0); BG PO2 97.6 mmHg (75.0-100.0); BG SAMPLE SITE RIGHT BRACHIAL; BG TOTAL HEMOGLOBIN 11.4 g/dL (12.0-18.0); BG VENT MODE MASK - SIMPLE
[2020-06-23 20:00] VITALS: BP 109/61
[2020-06-23 20:30] VITALS: BP 82/49
[2020-06-23] MEDS: MORPHINE SULFATE 4 MG/ML CPJ (NOT FOR IM USE) IV PRN (20:42)
[2020-06-23 22:00] VITALS: BP 85/55
[2020-06-23] MEDS: FAMOTIDINE 20MG/2ML VIAL IV SCH (22:00)
[2020-06-23] MEDS: DEXT 5%/0.45% NACL KCL 20MEQ/L 1,000 ML IV SCH (22:02)
[2020-06-23] MEDS: METRONIDAZOLE 500 MG PREMIX 100 ML IV SCH (22:03)
[2020-06-23] MEDS: CEFAZOLIN 1000MG PREMIX 50 ML IV SCH (22:03)
[2020-06-23] MEDS ORDERED: CLOP-31 PO (23:05)
[2020-06-23 23:46] LABS: HEMATOCRIT 26.9 % (36.0-48.0); HEMOGLOBIN 8.6 g/dL (12.0-16.0); MEAN CORPUSCULAR HEMOGLOBIN 27.2 pg (28.0-32.0); MEAN CORPUSCULAR VOLUME 85.2 fL (81.0-99.0); PLATELET 259 x1000/uL (130-400); RED BLOOD CELL COUNT 3.15 mill/uL (4.2-5.4); RED CELL DISTRIBUTION WIDTH 15.4 % (11.6-14.6)
[2020-06-23 23:52] LABS: CHLORIDE 111 mEq/L (98-107)
[2020-06-24] VITALS (15 sets, daily range): BP systolic 81–132; BP diastolic 41–80
[2020-06-24] MEDS ORDERED: SODIUM CHLORIDE 0.9% 500 ML IV ONE ×2 (01:30→20:30)
[2020-06-24] MEDS ORDERED: SODIUM CHLORIDE 0.9% 250 ML IV ONE (02:30)
[2020-06-24] MEDS: METRONIDAZOLE 500 MG PREMIX 100 ML IV SCH ×2 (06:09→17:10)
[2020-06-24] MEDS: CEFAZOLIN 1000MG PREMIX 50 ML IV SCH ×2 (07:01→17:29)
[2020-06-24 07:32] LABS: CHLORIDE 110 mEq/L (98-107)
[2020-06-24 07:35] LABS: BASOPHILS % 0.3 % (0.0-2.0); HEMATOCRIT. 21.4 % (36.0-48.0); HEMOGLOBIN. 7.1 g/dL (12.0-16.0); LYMPHOCYTES % 13.9 % (20.0-50.0); MEAN CORPUSCULAR VOLUME 87.1 fL (81.0-99.0); MEAN PLATELET VOLUME 8.9 fl (7.4-10.4); MONOCYTES % 8.6 % (2.0-8.0); NEUTROPHILS % 77.2 % (40.0-76.0); PLATELET 204 x1000/uL (130-400); RED BLOOD CELL COUNT 2.46 mill/uL (4.2-5.4); RED CELL DISTRIBUTION WIDTH 15.5 % (11.6-14.6)
[2020-06-24 07:44] LABS: LDL CHOLESTEROL 30 mg/dL (5-100)
[2020-06-24 07:46] LABS: T4 FREE 1.04 ng/dL (0.76-1.46)
[2020-06-24 07:47] LABS: HDL CHOLESTEROL 38 mg/dL (40-59)
[2020-06-24] MEDS ORDERED: PNEUMOCOCCAL 23-VAL P-SAC VAC 0.5 ML IM ONE (09:00)
[2020-06-24] MEDS ORDERED: INFLUENZA VACCINE 05/PF 0.5 ML VIAL IM ONE (09:00)
[2020-06-24] MEDS: FAMOTIDINE 20MG/2ML VIAL IV SCH ×2 (09:21→20:31)
[2020-06-24] MEDS: MORPHINE SULFATE 4 MG/ML CPJ (NOT FOR IM USE) IV PRN ×5 (09:22→23:33)
[2020-06-24] MEDS: DEXT 5%/0.45% NACL KCL 20MEQ/L 1,000 ML IV SCH (09:29)
[2020-06-24 17:25] LABS: HEMATOCRIT 23.4 % (36.0-48.0); HEMOGLOBIN 7.7 g/dL (12.0-16.0)
[2020-06-24] MEDS: DEXT 5%/0.45% NACL 1000ML 1,000 ML IV SCH (19:02)
[2020-06-24 21:27] LABS: BASOPHILS % 0.4 % (0.0-2.0); EOSINOPHILS % 0.7 % (0.0-5.0); HEMATOCRIT. 22.5 % (36.0-48.0); HEMOGLOBIN. 7.5 g/dL (12.0-16.0); LYMPHOCYTES % 20.9 % (20.0-50.0); MEAN CORPUSCULAR VOLUME 84.4 fL (81.0-99.0); MEAN PLATELET VOLUME 8.6 fl (7.4-10.4); MONOCYTES % 10.5 % (2.0-8.0); NEUTROPHILS % 67.5 % (40.0-76.0); PLATELET 165 x1000/uL (130-400); RED BLOOD CELL COUNT 2.67 mill/uL (4.2-5.4); RED CELL DISTRIBUTION WIDTH 15.1 % (11.6-14.6)
[2020-06-25] VITALS (11 sets, daily range): BP systolic 108–132; BP diastolic 55–80
[2020-06-25] MEDS ORDERED: *PATIENT'S OWN MEDICATION STORAGE XX SCH (02:45)
[2020-06-25] MEDS: DEXT 5%/0.45% NACL 1000ML 1,000 ML IV SCH ×3 (02:45→23:45)
[2020-06-25] MEDS: MORPHINE SULFATE 4 MG/ML CPJ (NOT FOR IM USE) IV PRN ×4 (02:54→19:51)
[2020-06-25] MEDS: FAMOTIDINE 20MG/2ML VIAL IV SCH ×2 (08:37→20:50)
[2020-06-25 10:06] LABS: BASOPHILS % 0.8 % (0.0-2.0); HEMATOCRIT. 26.6 % (36.0-48.0); HEMOGLOBIN. 9.1 g/dL (12.0-16.0); LYMPHOCYTES % 19.1 % (20.0-50.0); MEAN PLATELET VOLUME 8.6 fl (7.4-10.4); MONOCYTES % 8.7 % (2.0-8.0); NEUTROPHILS % 69.4 % (40.0-76.0); PLATELET 166 x1000/uL (130-400); RED BLOOD CELL COUNT 3.13 mill/uL (4.2-5.4); RED CELL DISTRIBUTION WIDTH 14.7 % (11.6-14.6)
[2020-06-25 10:24] LABS: CHLORIDE 108 mEq/L (98-107)
[2020-06-25 19:56] LABS: HEMATOCRIT 28.5 % (36.0-48.0); HEMOGLOBIN 9.5 g/dL (12.0-16.0)
[2020-06-25] MEDS: BUDESONIDE 0.5MG/2ML NEB HHN SCH ×2 (20:57→21:11)
[2020-06-25] MEDS: IPRATROPIUM/ALBUTEROL 0.5-3(2.5)MG/3ML NEB HHN SCH ×2 (20:57→21:11)
[2020-06-26] VITALS (11 sets, daily range): BP systolic 115–138; BP diastolic 60–76
[2020-06-26] MEDS: MORPHINE SULFATE 4 MG/ML CPJ (NOT FOR IM USE) IV PRN ×6 (00:46→23:40)
[2020-06-26] MEDS: BUDESONIDE 0.5MG/2ML NEB HHN SCH (06:00)
[2020-06-26 07:14] LABS: CHLORIDE 108 mEq/L (98-107)
[2020-06-26 07:32] LABS: BASOPHILS % 0.3 % (0.0-2.0); EOSINOPHILS % 4.2 % (0.0-5.0); HEMATOCRIT. 28.6 % (36.0-48.0); HEMOGLOBIN. 9.7 g/dL (12.0-16.0); LYMPHOCYTES % 17.4 % (20.0-50.0); MEAN CORPUSCULAR VOLUME 85.9 fL (81.0-99.0); MEAN PLATELET VOLUME 8.5 fl (7.4-10.4); MONOCYTES % 8.5 % (2.0-8.0); NEUTROPHILS % 69.6 % (40.0-76.0); PLATELET 165 x1000/uL (130-400); RED BLOOD CELL COUNT 3.33 mill/uL (4.2-5.4); RED CELL DISTRIBUTION WIDTH 14.6 % (11.6-14.6)
[2020-06-26] MEDS: IPRATROPIUM/ALBUTEROL 0.5-3(2.5)MG/3ML NEB HHN SCH (08:10)
[2020-06-26] MEDS: FAMOTIDINE 20MG/2ML VIAL IV SCH ×2 (09:30→20:56)
[2020-06-26] MEDS: DEXT 5%/0.45% NACL 1000ML 1,000 ML IV SCH ×2 (09:41→19:34)
[2020-06-26] MEDS: MORPHINE SULFATE 2 MG/ML CPJ (NOT FOR IM USE) IV PRN (12:33)
[2020-06-27] VITALS (8 sets, daily range): BP systolic 115–141; BP diastolic 65–89
[2020-06-27] MEDS: MORPHINE SULFATE 4 MG/ML CPJ (NOT FOR IM USE) IV PRN (05:07)
[2020-06-27] MEDS: DEXT 5%/0.45% NACL 1000ML 1,000 ML IV SCH ×2 (05:30→15:30)
[2020-06-27 07:15] LABS: BASOPHILS % 0.3 % (0.0-2.0); EOSINOPHILS % 4.3 % (0.0-5.0); HEMATOCRIT. 30.7 % (36.0-48.0); HEMOGLOBIN. 10.3 g/dL (12.0-16.0); LYMPHOCYTES % 10.9 % (20.0-50.0); MEAN CORPUSCULAR HEMOGLOBIN 28.9 pg (28.0-32.0); MEAN CORPUSCULAR VOLUME 85.8 fL (81.0-99.0); MEAN PLATELET VOLUME 8.6 fl (7.4-10.4); MONOCYTES % 8.5 % (2.0-8.0); PLATELET 206 x1000/uL (130-400); RED BLOOD CELL COUNT 3.58 mill/uL (4.2-5.4); RED CELL DISTRIBUTION WIDTH 14.4 % (11.6-14.6)
[2020-06-27 07:32] LABS: CHLORIDE 106 mEq/L (98-107)
[2020-06-27] MEDS: FAMOTIDINE 20MG/2ML VIAL IV SCH ×2 (08:38→20:51)
[2020-06-27] MEDS: MORPHINE SULFATE 2 MG/ML CPJ (NOT FOR IM USE) IV PRN (08:39)
[2020-06-27] MEDS: IPRATROPIUM/ALBUTEROL 0.5-3(2.5)MG/3ML NEB HHN SCH ×3 (09:35→16:50)
[2020-06-27] MEDS: ONDANSETRON HCL 4MG/2ML INJ IV PRN (13:09)
[2020-06-27] MEDS ORDERED: POTASSIUM CHLORIDE INJ 40 MEQ in DEXT 5% WATER 250 ML IV NR (15:00)
[2020-06-27] MEDS: AMITRIPTYLINE 25MG TABLET PO SCH (20:52)
[2020-06-28] VITALS (14 sets, daily range): BP systolic 122–148; BP diastolic 70–96
[2020-06-28 06:57] LABS: CHLORIDE 105 mEq/L (98-107)
[2020-06-28 07:30] LABS: BASOPHILS % 0.4 % (0.0-2.0); EOSINOPHILS % 0.3 % (0.0-5.0); LYMPHOCYTES % 10.1 % (20.0-50.0); MONOCYTES % 10.8 % (2.0-8.0); NEUTROPHILS % 78.4 % (40.0-76.0); RED BLOOD CELL COUNT 4.62 mill/uL (4.2-5.4)
[2020-06-28 08:03] LABS: HEMATOCRIT. 36.9 % (36.0-48.0); HEMOGLOBIN. 12.5 g/dL (12.0-16.0); MEAN CORPUSCULAR HEMOGLOBIN 28.7 pg (28.0-32.0); MEAN CORPUSCULAR VOLUME 84.9 fL (81.0-99.0); RED CELL DISTRIBUTION WIDTH 14.8 % (11.6-14.6)
[2020-06-28] MEDS: FAMOTIDINE 20MG/2ML VIAL IV SCH ×2 (09:14→20:45)
[2020-06-28] MEDS: BUDESONIDE 0.5MG/2ML NEB HHN SCH ×3 (09:35→19:26)
[2020-06-28] MEDS: ONDANSETRON HCL 4MG/2ML INJ IV PRN (10:13)
[2020-06-28 14:52] LABS: BG BASE EXCESS 3.4 mmol/L (-2.0-2.0); BG CARBOXYHEMOGLOBIN 0.8 % (0.5-1.5); BG FRACTION INSPIRED OXYGEN 21; BG HCO3 ACT 26.8 mmol/L (22.0-26.0); BG METHEMOGLOBIN 0.2 % (0.0-1.5); BG OXYGEN SATURATION 92.9 % (92.0-98.5); BG PCO2 36.5 mmHg (35.0-45.0); BG PH 7.483 (7.350-7.450); BG PO2 62.5 mmHg (75.0-100.0); BG SAMPLE SITE LEFT BRACHIAL; BG TOTAL HEMOGLOBIN 12.8 g/dL (12.0-18.0); BG VENT MODE ROOM AIR
[2020-06-28 15:19] LABS: MEAN PLATELET VOLUME 8.9 fl (7.4-10.4); PLATELET 226 x1000/uL (130-400)
[2020-06-28] MEDS: MORPHINE SULFATE 2 MG/ML CPJ (NOT FOR IM USE) IV PRN (16:12)
[2020-06-28] MEDS: IPRATROPIUM/ALBUTEROL 0.5-3(2.5)MG/3ML NEB HHN SCH (19:26)
[2020-06-28] MEDS: AMITRIPTYLINE 25MG TABLET PO SCH (20:46)
[2020-06-29] VITALS (10 sets, daily range): BP systolic 117–150; BP diastolic 69–89
[2020-06-29 07:07] LABS: HEMATOCRIT. 33.7 % (36.0-48.0); HEMOGLOBIN. 11.5 g/dL (12.0-16.0); MEAN CORPUSCULAR VOLUME 84.9 fL (81.0-99.0); MEAN PLATELET VOLUME 7.9 fl (7.4-10.4); PLATELET 297 x1000/uL (130-400); RED BLOOD CELL COUNT 3.98 mill/uL (4.2-5.4); RED CELL DISTRIBUTION WIDTH 15.2 % (11.6-14.6)
[2020-06-29 07:20] LABS: CHLORIDE 103 mEq/L (98-107)
[2020-06-29 08:35] LABS: BG BASE EXCESS 3.4 mmol/L (-2.0-2.0); BG CARBOXYHEMOGLOBIN 0.3 % (0.5-1.5); BG DEOXYHEMOGLOBIN 2.2 % (0.0-5.0); BG FRACTION INSPIRED OXYGEN 28; BG HCO3 ACT 26.6 mmol/L (22.0-26.0); BG METHEMOGLOBIN 0.3 % (0.0-1.5); BG OXYGEN SATURATION 97.8 % (92.0-98.5); BG OXYHEMOGLOBIN 97.2 % (94.0-97.0); BG PCO2 35.7 mmHg (35.0-45.0); BG PO2 103.4 mmHg (75.0-100.0); BG SAMPLE SITE RIGHT RADIAL; BG TOTAL HEMOGLOBIN 12.3 g/dL (12.0-18.0); BG VENT MODE NASAL CANNULA
[2020-06-29] MEDS: FAMOTIDINE 20MG/2ML VIAL IV SCH (09:23)
[2020-06-29] MEDS: ONDANSETRON HCL 4MG/2ML INJ IV PRN ×2 (09:23→21:09)
[2020-06-29] MEDS: MORPHINE SULFATE 2 MG/ML CPJ (NOT FOR IM USE) IV PRN ×2 (09:24→18:40)
[2020-06-29] MEDS ORDERED: POTASSIUM CHLORIDE 20MEQ TABLET SR PO NR (11:45)
[2020-06-29] MEDS: MORPHINE SULFATE 4 MG/ML CPJ (NOT FOR IM USE) IV PRN ×2 (15:16→21:22)
[2020-06-29] MEDS: IPRATROPIUM/ALBUTEROL 0.5-3(2.5)MG/3ML NEB HHN SCH ×2 (15:38→22:37)
[2020-06-29] MEDS: BUDESONIDE 0.5MG/2ML NEB HHN SCH ×3 (15:38→22:36)
[2020-06-29 16:27] LABS: PLATELET ESTIMATE NORMAL
[2020-06-29 18:01] LABS: BG BASE EXCESS 4.5 mmol/L (-2.0-2.0); BG CARBOXYHEMOGLOBIN 0.8 % (0.5-1.5); BG DEOXYHEMOGLOBIN 7.5 % (0.0-5.0); BG FRACTION INSPIRED OXYGEN 21; BG HCO3 ACT 28.6 mmol/L (22.0-26.0); BG METHEMOGLOBIN 0.2 % (0.0-1.5); BG OXYGEN SATURATION 92.4 % (92.0-98.5); BG OXYHEMOGLOBIN 91.5 % (94.0-97.0); BG PCO2 41.1 mmHg (35.0-45.0); BG PH 7.461 (7.350-7.450); BG PO2 61.2 mmHg (75.0-100.0); BG SAMPLE SITE RIGHT BRACHIAL; BG TOTAL HEMOGLOBIN 12.5 g/dL (12.0-18.0); BG VENT MODE ROOM AIR
[2020-06-29] MEDS: OMEPRAZOLE 20MG CAPSULE EXTENDED RELEASE PO SCH (22:54)
[2020-06-29] MEDS: AMITRIPTYLINE 25MG TABLET PO SCH (22:55)
[2020-06-30] VITALS (12 sets, daily range): BP systolic 115–142; BP diastolic 30–86
[2020-06-30] MEDS: MORPHINE SULFATE 4 MG/ML CPJ (NOT FOR IM USE) IV PRN ×3 (03:34→20:46)
[2020-06-30] MEDS: OMEPRAZOLE 20MG CAPSULE EXTENDED RELEASE PO SCH (05:53)
[2020-06-30 06:20] LABS: HEMATOCRIT 37.6 % (36.0-48.0); HEMOGLOBIN 12.4 g/dL (12.0-16.0); MEAN CORPUSCULAR HEMOGLOBIN 28.2 pg (28.0-32.0); MEAN CORPUSCULAR VOLUME 85.1 fL (81.0-99.0); PLATELET 362 x1000/uL (130-400); RED BLOOD CELL COUNT 4.41 mill/uL (4.2-5.4); RED CELL DISTRIBUTION WIDTH 15.3 % (11.6-14.6)
[2020-06-30 06:44] LABS: CHLORIDE 101 mEq/L (98-107)
[2020-06-30] MEDS ORDERED: OMEPRAZOLE 20MG CAPSULE EXTENDED RELEASE PO SCH (06:50)
[2020-06-30] MEDS: ONDANSETRON HCL 4MG/2ML INJ IV PRN ×2 (09:13→20:42)
[2020-06-30] MEDS ORDERED: LIDOCAINE HCL 1% 20ML VIAL (Pyxis) INJ ONE (12:29)
[2020-06-30] MEDS ORDERED: SODIUM BICARBONATE 4% (2.4MEQ) 5ML VIAL IV ONE (12:29)
[2020-06-30] MEDS ORDERED: IOHEXOL-300 50 ML BOTTLE IV ONE (13:00)
[2020-06-30] MEDS: DEXT 5%/0.45% NACL 1000ML 1,000 ML IV SCH (14:52)
[2020-06-30] MEDS: AMITRIPTYLINE 25MG TABLET PO SCH (21:07)
[2020-06-30] MEDS: PANTOPRAZOLE SODIUM 40 MG/VIAL IV SCH (22:48)
[2020-07-01] VITALS (12 sets, daily range): BP systolic 123–149; BP diastolic 50–87
[2020-07-01] MEDS: IPRATROPIUM/ALBUTEROL 0.5-3(2.5)MG/3ML NEB HHN SCH ×4 (02:24→21:20)
[2020-07-01 07:19] LABS: HEMATOCRIT. 34.9 % (36.0-48.0); HEMOGLOBIN. 11.9 g/dL (12.0-16.0); MEAN CORPUSCULAR VOLUME 85.3 fL (81.0-99.0); MEAN PLATELET VOLUME 7.7 fl (7.4-10.4); PLATELET 388 x1000/uL (130-400); RED BLOOD CELL COUNT 4.09 mill/uL (4.2-5.4); RED CELL DISTRIBUTION WIDTH 15.1 % (11.6-14.6)
[2020-07-01 07:33] LABS: CHLORIDE 101 mEq/L (98-107)
[2020-07-01] MEDS: MORPHINE SULFATE 2 MG/ML CPJ (NOT FOR IM USE) IV PRN ×2 (07:58→20:25)
[2020-07-01] MEDS: PANTOPRAZOLE SODIUM 40 MG/VIAL IV SCH (09:14)
[2020-07-01] MEDS ORDERED: IOHEXOL-350 100 ML BOTTLE ONE (09:22)
[2020-07-01] MEDS: BUDESONIDE 0.5MG/2ML NEB HHN SCH ×2 (09:27→21:20)
[2020-07-01] MEDS: DEXT 5%/0.45% NACL 1000ML 1,000 ML IV SCH (10:09)
[2020-07-01] MEDS: MORPHINE SULFATE 4 MG/ML CPJ (NOT FOR IM USE) IV PRN (16:22)
[2020-07-01] MEDS: AMITRIPTYLINE 25MG TABLET PO SCH (20:23)
[2020-07-01 21:50] LABS: PLATELET ESTIMATE NORMAL
[2020-07-02] VITALS (12 sets, daily range): BP systolic 97–135; BP diastolic 55–76
[2020-07-02] MEDS: IPRATROPIUM/ALBUTEROL 0.5-3(2.5)MG/3ML NEB HHN SCH ×5 (01:21→14:00)
[2020-07-02] MEDS: ONDANSETRON HCL 4MG/2ML INJ IV PRN (02:30)
[2020-07-02] MEDS: MORPHINE SULFATE 2 MG/ML CPJ (NOT FOR IM USE) IV PRN ×4 (02:43→20:10)
[2020-07-02] MEDS: DEXT 5%/0.45% NACL 1000ML 1,000 ML IV SCH (06:55)
[2020-07-02 07:11] LABS: CHLORIDE 102 mEq/L (98-107)
[2020-07-02 07:16] LABS: HEMATOCRIT. 34.6 % (36.0-48.0); HEMOGLOBIN. 11.5 g/dL (12.0-16.0); MEAN CORPUSCULAR HEMOGLOBIN 28.5 pg (28.0-32.0); MEAN PLATELET VOLUME 7.6 fl (7.4-10.4); PLATELET 381 x1000/uL (130-400); RED BLOOD CELL COUNT 4.02 mill/uL (4.2-5.4)
[2020-07-02] MEDS: BUDESONIDE 0.5MG/2ML NEB HHN SCH ×3 (08:00→09:12)
[2020-07-02] MEDS: PANTOPRAZOLE SODIUM 40 MG/VIAL IV SCH (08:11)
[2020-07-02] MEDS ORDERED: POTASSIUM CHLORIDE INJ 40 MEQ in DEXT 5% WATER 250 ML IV NR (13:30)
[2020-07-02 14:13] LABS: PLATELET ESTIMATE NORMAL
[2020-07-02] MEDS: AMITRIPTYLINE 25MG TABLET PO SCH (20:08)
[2020-07-03] VITALS (9 sets, daily range): BP systolic 98–133; BP diastolic 57–87
[2020-07-03] MEDS: IPRATROPIUM/ALBUTEROL 0.5-3(2.5)MG/3ML NEB HHN SCH ×2 (00:59→14:00)
[2020-07-03] MEDS: MORPHINE SULFATE 2 MG/ML CPJ (NOT FOR IM USE) IV PRN ×4 (01:56→22:33)
[2020-07-03] MEDS: DEXT 5%/0.45% NACL 1000ML 1,000 ML IV SCH (04:55)
[2020-07-03 07:16] LABS: BASOPHILS % 0.3 % (0.0-2.0); EOSINOPHILS % 4.9 % (0.0-5.0); HEMATOCRIT. 30.8 % (36.0-48.0); HEMOGLOBIN. 10.3 g/dL (12.0-16.0); LYMPHOCYTES % 27.5 % (20.0-50.0); MEAN CORPUSCULAR HEMOGLOBIN 28.8 pg (28.0-32.0); MEAN CORPUSCULAR VOLUME 85.7 fL (81.0-99.0); MEAN PLATELET VOLUME 7.4 fl (7.4-10.4); MONOCYTES % 11.2 % (2.0-8.0); NEUTROPHILS % 56.1 % (40.0-76.0); PLATELET 373 x1000/uL (130-400); RED BLOOD CELL COUNT 3.59 mill/uL (4.2-5.4); RED CELL DISTRIBUTION WIDTH 14.9 % (11.6-14.6)
[2020-07-03 07:43] LABS: CHLORIDE 104 mEq/L (98-107)
[2020-07-03] MEDS: PANTOPRAZOLE SODIUM 40 MG/VIAL IV SCH (09:38)
[2020-07-03] MEDS: MORPHINE SULFATE 4 MG/ML CPJ (NOT FOR IM USE) IV PRN (09:44)
[2020-07-03] MEDS ORDERED: POTASSIUM CHLORIDE 20MEQ TABLET SR PO SCH (10:00)
[2020-07-03] MEDS: AMITRIPTYLINE 25MG TABLET PO SCH (21:49)
[2020-07-04] VITALS (11 sets, daily range): BP systolic 104–143; BP diastolic 62–80
[2020-07-04] MEDS: MORPHINE SULFATE 2 MG/ML CPJ (NOT FOR IM USE) IV PRN ×2 (04:05→21:18)
[2020-07-04] MEDS: DEXT 5%/0.45% NACL 1000ML 1,000 ML IV SCH ×2 (06:14→21:21)
[2020-07-04 06:34] LABS: BASOPHILS % 0.4 % (0.0-2.0); EOSINOPHILS % 3.4 % (0.0-5.0); HEMATOCRIT. 33.5 % (36.0-48.0); HEMOGLOBIN. 11.2 g/dL (12.0-16.0); LYMPHOCYTES % 17.5 % (20.0-50.0); MEAN CORPUSCULAR HEMOGLOBIN 28.6 pg (28.0-32.0); MEAN CORPUSCULAR VOLUME 85.3 fL (81.0-99.0); MEAN PLATELET VOLUME 7.1 fl (7.4-10.4); MONOCYTES % 7.4 % (2.0-8.0); NEUTROPHILS % 71.3 % (40.0-76.0); PLATELET 355 x1000/uL (130-400); RED BLOOD CELL COUNT 3.93 mill/uL (4.2-5.4); RED CELL DISTRIBUTION WIDTH 15.1 % (11.6-14.6)
[2020-07-04 06:39] LABS: CHLORIDE 106 mEq/L (98-107)
[2020-07-04] MEDS: IPRATROPIUM/ALBUTEROL 0.5-3(2.5)MG/3ML NEB HHN SCH ×3 (08:04→22:20)
[2020-07-04] MEDS: PANTOPRAZOLE SODIUM 40 MG/VIAL IV SCH (08:51)
[2020-07-04] MEDS: MORPHINE SULFATE 4 MG/ML CPJ (NOT FOR IM USE) IV PRN ×2 (11:15→15:32)
[2020-07-04] MEDS ORDERED: POTASSIUM CHLORIDE 20MEQ TABLET SR PO NR (11:15)
[2020-07-04] MEDS: DOCUSATE SODIUM 100MG CAPSULE PO SCH (15:40)
[2020-07-04] MEDS: AMITRIPTYLINE 25MG TABLET PO SCH (21:17)
[2020-07-04] MEDS: BUDESONIDE 0.5MG/2ML NEB HHN SCH (22:20)
[2020-07-05] VITALS: BP 139/74
[2020-07-05] MEDS: IPRATROPIUM/ALBUTEROL 0.5-3(2.5)MG/3ML NEB HHN SCH ×2 (01:20→03:53)
[2020-07-05 04:00] VITALS: BP 140/78
[2020-07-05] MEDS: MORPHINE SULFATE 2 MG/ML CPJ (NOT FOR IM USE) IV PRN ×4 (04:27→22:57)
[2020-07-05 06:27] LABS: HEMATOCRIT 38.8 % (36.0-48.0); HEMOGLOBIN 12.9 g/dL (12.0-16.0); MEAN CORPUSCULAR HEMOGLOBIN 28.5 pg (28.0-32.0); MEAN CORPUSCULAR VOLUME 85.4 fL (81.0-99.0); PLATELET 360 x1000/uL (130-400); RED BLOOD CELL COUNT 4.54 mill/uL (4.2-5.4); RED CELL DISTRIBUTION WIDTH 15.2 % (11.6-14.6)
[2020-07-05 06:38] LABS: CHLORIDE 106 mEq/L (98-107)
[2020-07-05 08:19] VITALS: BP 124/71
[2020-07-05] MEDS: DOCUSATE SODIUM 100MG CAPSULE PO SCH ×2 (09:13→17:00)
[2020-07-05] MEDS: PANTOPRAZOLE SODIUM 40 MG/VIAL IV SCH (09:13)
[2020-07-05] MEDS: DEXT 5%/0.45% NACL 1000ML 1,000 ML IV SCH (10:03)
[2020-07-05] MEDS ORDERED: METOPROLOL TARTRATE 25MG TABLET PO SCH (11:30)
[2020-07-05 12:00] VITALS: BP 121/52
[2020-07-05] MEDS ORDERED: LACTULOSE 20G/30ML UDC PO SCH (12:15)
[2020-07-05] MEDS ORDERED: BISACODYL 10MG SUPP PR SCH (12:15)
[2020-07-05] MEDS ORDERED: MORPHINE SULFATE 4 MG/ML CPJ (NOT FOR IM USE) IV PRN (14:45)
[2020-07-05 16:00] VITALS: BP 118/59
[2020-07-05 20:00] VITALS: BP 108/42
[2020-07-05] MEDS: AMITRIPTYLINE 25MG TABLET PO SCH (21:46)
[2020-07-06] VITALS: BP 121/63
[2020-07-06 06:13] LABS: HEMATOCRIT 36.1 % (36.0-48.0); MEAN CORPUSCULAR HEMOGLOBIN 28.6 pg (28.0-32.0); MEAN CORPUSCULAR VOLUME 85.7 fL (81.0-99.0); PLATELET 405 x1000/uL (130-400); RED BLOOD CELL COUNT 4.22 mill/uL (4.2-5.4); RED CELL DISTRIBUTION WIDTH 15.1 % (11.6-14.6)
[2020-07-06 06:28] LABS: CHLORIDE 107 mEq/L (98-107)
[2020-07-06] MEDS: BUDESONIDE 0.5MG/2ML NEB HHN SCH ×2 (08:13→22:16)
[2020-07-06] MEDS: IPRATROPIUM/ALBUTEROL 0.5-3(2.5)MG/3ML NEB HHN SCH ×3 (08:16→22:15)
[2020-07-06 08:22] VITALS: BP 127/67
[2020-07-06] MEDS: PANTOPRAZOLE SODIUM 40 MG/VIAL IV SCH (09:29)
[2020-07-06] MEDS: DOCUSATE SODIUM 100MG CAPSULE PO SCH ×2 (09:29→16:47)
[2020-07-06] MEDS: DEXT 5%/0.45% NACL 1000ML 1,000 ML IV SCH (09:30)
[2020-07-06 12:00] VITALS: BP 118/70
[2020-07-06] MEDS: MORPHINE SULFATE 2 MG/ML CPJ (NOT FOR IM USE) IV PRN ×3 (12:56→21:20)
[2020-07-06 16:00] VITALS: BP 115/65
[2020-07-06 20:00] VITALS: BP 125/65
[2020-07-06] MEDS: AMITRIPTYLINE 25MG TABLET PO SCH (21:00)
[2020-07-07] VITALS: BP 108/50
[2020-07-07] MEDS: MORPHINE SULFATE 2 MG/ML CPJ (NOT FOR IM USE) IV PRN ×2 (01:23→06:11)
[2020-07-07 04:00] VITALS: BP 114/57
[2020-07-07] MEDS: DEXT 5%/0.45% NACL 1000ML 1,000 ML IV SCH (06:28)
[2020-07-07 07:03] LABS: HEMATOCRIT 33.8 % (36.0-48.0); HEMOGLOBIN 11.4 g/dL (12.0-16.0); MEAN CORPUSCULAR HEMOGLOBIN 28.8 pg (28.0-32.0); PLATELET 404 x1000/uL (130-400); RED BLOOD CELL COUNT 3.97 mill/uL (4.2-5.4); RED CELL DISTRIBUTION WIDTH 15.1 % (11.6-14.6)
[2020-07-07 07:40] LABS: CHLORIDE 108 mEq/L (98-107)
[2020-07-07] MEDS ORDERED: HYDROCODONE/APAP 7.5/325MG 1 TAB TABLET PO PRN (09:00)
[2020-07-07] MEDS: BUDESONIDE 0.5MG/2ML NEB HHN SCH (09:55)
[2020-07-07] MEDS: IPRATROPIUM/ALBUTEROL 0.5-3(2.5)MG/3ML NEB HHN SCH (09:55)
[2020-07-07] MEDS ORDERED: METOPROLOL TARTRATE 25MG TABLET PO NR (10:00)
[2020-07-07] MEDS ORDERED: POTASSIUM CHLORIDE 20MEQ TABLET SR PO NR (10:00)
[2020-07-07] MEDS: PANTOPRAZOLE SODIUM 40 MG/VIAL IV SCH (11:01)
[2020-07-07] MEDS: DOCUSATE SODIUM 100MG CAPSULE PO SCH (11:07)
[2020-07-07] MEDS ORDERED: DOCU-138 MT (13:13)
[2020-07-07] MEDS ORDERED: COR3 MT (13:13)
[2020-07-07] MEDS ORDERED: HYDR-4001 MT (13:13)
[2020-07-07] MEDS ORDERED: BISA10SU62 RC (13:13)
[2020-07-07 14:12] VITALS: BP 108/91
== END 2020-07-07 15:12 | disposition home health service (06) | DRG 329 ==
LOC: ER 21:55 → EDBEDREQ 06-23 00:10 → 6WST 06-23 18:00 → 3WST 06-25 02:13 → 4WST 07-04 18:51
PROVIDERS: ADMIT Internal Medicine; ATTEND Internal Medicine
PROC: 0DTF0ZZ Resection of Right Large Intestine, Open Approach (ICD-10-PCS; principal; 2020-06-23)
PROC: 30233N1 Transfusion of Nonautologous Red Blood Cells into Peripheral Vein, Percutaneous Approach (ICD-10-PCS; 2020-06-24)
PROC: 02HV33Z Insertion of Infusion Device into Superior Vena Cava, Percutaneous Approach (ICD-10-PCS; 2020-06-30)
PROC: B518ZZA Fluoroscopy of Superior Vena Cava, Guidance (ICD-10-PCS; 2020-06-30)
PROC: B548ZZA Ultrasonography of Superior Vena Cava, Guidance (ICD-10-PCS; 2020-06-30)
DX: K46.0 Unspecified abdominal hernia with obstruction, without gangrene (principal); K56.2 Volvulus; E87.2 Acidosis; K91.89 Other postprocedural complications and disorders of digestive system; N39.0 Urinary tract infection, site not specified; J90 Pleural effusion, not elsewhere classified; K56.7 Ileus, unspecified; K56.600 Partial intestinal obstruction, unspecified as to cause; G90.9 Disorder of the autonomic nervous system, unspecified; D64.9 Anemia, unspecified; E78.00 Pure hypercholesterolemia, unspecified; E78.5 Hyperlipidemia, unspecified; E83.52 Hypercalcemia; I10 Essential (primary) hypertension; J44.9 Chronic obstructive pulmonary disease, unspecified; N73.6 Female pelvic peritoneal adhesions (postinfective); Z20.822 Contact with and (suspected) exposure to COVID-19; R74.01 Elevation of levels of liver transaminase levels; R73.9 Hyperglycemia, unspecified; R00.0 Tachycardia, unspecified; Z90.710 Acquired absence of both cervix and uterus; Z79.82 Long term (current) use of aspirin; Z79.899 Other long term (current) drug therapy; Z90.49 Acquired absence of other specified parts of digestive tract; Z79.02 Long term (current) use of antithrombotics/antiplatelets
CPT/HCPCS: 36415; 36573; 36600; 71045; 71101; 71275; 72170; 73110; 74018; 74176; 74177; 78582; 80048; 80053; 80061; 80305; 80320; 81003; 82375; 82805; 82962; 83605; 83880; 84439; 84443; 84484; 85014; 85018; 85025; 85027; 86850; 86900; 86920; 87426; 88307; 90686; 90732; 93005; 93970; 94640; 96374; 96375; 97110; 97116; 97162; 97530; 99285; A6261; A9558; C1725; C1769; C9113; J0330; J0690; J1100; J1170; J2250; J2270; J2405; J2543; J2704; J2710; J3010; J3480; J3490; J7030; J7040; J7060; J7626; P9016; Q9963; Q9967; A4315; G0480